=== PATIENT | female | born 1955 | race Caucasian/White ===

== ENCOUNTER 2022-08-01 17:35 | Emergency (ER) | payer MEDICARE, BC, SELFPAY ==
[2022-08-01 17:45] VITALS: BP 151/96
[2022-08-01 17:47] VITALS: BP 151/96; PULSE 67; RESP 18; TEMP 36.2; O2SAT 99; BMI 28.8
--- NOTE | 2022-08-01 18:11 | ED_ITS ---
HPI - General Adult General Chief complaint: Nausea/Vomiting Stated complaint: dehydrated Time Seen by Provider: 08/01/22 17:41 Source: patient and family Mode of arrival: ambulatory Limitations: no limitations History of Present Illness HPI narrative: 67-year-old female presents the emergency department with a 3 day history of diarrhea and 2 day history of nausea. Patient was diagnosed with diabetes 4 weeks ago. She was started on metformin 500 mg tablets. She has been increasing the dose by 1 tablet every week and is now taking 2000 mg of the extended release version once daily. She did have any significant side effects at 1000 mg but started having some mild intermittent nausea and looser stools at 1500 mg and they have worsened since she recently increased to 1000 mg once daily. She has not talked to her primary care provider about lowering her dose. Blood sugar was 160 this morning. There is no abdominal pain. There is no blood in her stools. She has had no fevers or no other symptoms of significant illness. She has not tried any Imodium to help with the loose stools or any other home treatments. She has a notable history of orthostatic hypotension, takes midodrine Florinef for symptomatic control. All of her cares through [facility] and I do not have access to those records today. She says that she feels like she is probably getting dehydrated. She is not on any type of beta-anshul that would mask tachycardia. Past medical history most notable for migraines, orthostatic hypertension, hyperlipidemia, anxiety, hypothyroidism. Her medications are reviewed from her my chart sugar on her phone. She denies any true drug allergies. Socially she is a nonsmoker with no pertinent alcohol or drug use or travel. ROS is notable for the GI symptoms as above, otherwise denies times 12 systems. Related Data Home Medications Medication Instructions Recorded Confirmed atorvastatin 80 mg tablet 80 mg PO DAILY 08/01/22 08/01/22 escitalopram oxalate 20 mg tablet 20 mg PO DAILY 08/01/22 08/01/22 gabapentin 300 mg capsule mg PO 08/01/22 levothyroxine 50 mcg tablet 50 mcg PO DAILY 08/01/22 08/01/22 metformin 500 mg tablet,extended PO 08/01/22 release 24 hr Allergies Allergy/AdvReac Type Severity Reaction Status Date / Time No Known Drug Allergies Allergy Verified 08/01/22 17:51 PFSH PFS Social History Smoking Status: Former smoker How often do you have a drink containing alcohol: never How often do you have six or more drinks on one occasion: Never AUDIT-C Alcohol total score: 0 Non-prescribed substance use: denies use Exam Const: Vital Signs, click to edit/add: Vital Signs - 24 hr 08/01/22 17:47 Temperature 97.2 F L Pulse Rate [Right Pulse Oximeter] 67 Respiratory Rate 18 Blood Pressure [Le ft Upper Arm] 151/96 H Pulse Oximetry 99 Oxygen Delivery Me thod Room Air Documenting provider has reviewed patient's vital signs: yes Common normals: no apparent distress General appearance: cooperative, comfortable and well kempt HENMT: Common normals: normocephalic Head and scalp: normocephalic Mouth: oral and palatal mucosa normal Throat: posterior oropharynx normal Other: Moist mucous membranes Eye: Common normals: conjunctivae normal Conjunctiva: conjunctiva(e) normal Resp: Common normals: normal respiratory effort, no use of accessory muscles and clear to auscultation bilaterally Effort & inspection: able to speak in complete sentences Auscultation: clear to auscultation bilaterally Cardio: Common normals: regular rate, regular rhythm, S1 normal heart sound, S2 normal heart sound, no murmurs and peripheral pulses 2+ throughout Rate: regular rate Rhythm: regular rhythm Heart sounds: S1 normal and S2 normal Peripheral pulses: pulses 2+ throughout GI: Other: Abdominal binder in place but soft underneath. No obvious masses Psych: Appearance: well kempt Attitude: engaged Insight: insight good Judgement: judgment good Skin: Common normals: no rashes or lesions noted General skin exam: no rashes or lesions noted Course Vital Signs Vital signs: Initial Vital Signs Temperature 97.2 F L 08/01/22 17:47 Temperature Source Temporal Artery Scan 08/01/22 17:47 Pulse Rate 67 08/01/22 17:47 Respiratory Rate 18 08/01/22 17:47 Blood Pressure 151/96 H 08/01/22 17:47 Blood Pressure Mean 114 08/01/22 17:47 Blood Pressure Position Sitting 08/01/22 17:47 Pulse Oximetry 99 08/01/22 17:47 Oxygen Delivery Method Room Air 08/01/22 17:47 Vital Signs Temperature 97.2 F L 08/01/22 17:47 Pulse Rate 67 08/01/22 17:47 Respiratory Rate 18 08/01/22 17:47 Blood Pressure 151/96 H 08/01/22 17:47 Pulse Oximetry 99 08/01/22 17:47 Oxygen Delivery Method Room Air 08/01/22 17:47 Temperature 97.2 F L 08/01/22 17:47 Pulse Rate 67 08/01/22 17:47 Respiratory Rate 18 08/01/22 17:47 Blood Pressure 151/96 H 08/01/22 17:47 Pulse Oximetry 99 08/01/22 17:47 Oxygen Delivery Method Room Air 08/01/22 17:47 Medical Decision Making MDM Narrative Medical decision making narrative: No hypotension or tachycardia. Moist membranes no obvious clinical dehydration. Suspect metformin side effect, as does patient and family. No fevers tenderness or other red flags. I ask if she would like blood work done and she agrees that this is not warranted. I do recommend that she discontinue the metformin for the next couple of days and will discuss a slower reintroduction and lower overall dose. Counseled that she may use Imodium as needed for the loose stools will give 1 L of LR and 4 mg of Zofran. Update: Patient is feeling quite a bit better after the Zofran. She has gotten about a 0.5 L of fluids, we will continue these. Counseled on stopping the metformin for 2 days, restarting on Wednesday at 1 pill daily for 3 days and then trying to increase to 2 pills daily. I do recommend split dosing on that. Contact her primary care doctor in a couple of weeks to let her know how this titration is going and for further instructions. Alarm symptoms reviewed. Okay to use Imodium if preferred. Discharge Plan Discharge Clinical Impression: Medication side effect Patient Disposition: Home w/ Parent or Adult Condition: Stable Instructions: Metformin (By mouth) Additional Instructions: Unfortunately, side effects to metformin are very common. Thankfully, this medicine will likely still be able to control your diabetes effectively even at a lower dose. Most people have significantly less side effects at a lower dose. I recommend that you stop the medicine for 2 days. I am not worried about your blood sugar unless it is over 400. It will take some time to get things under appropriate control. On Wednesday, restart your metformin at 500 mg in the morning only. Do this for 3 days, then increase to 500 mg morning and evening. Keep taking this dose for 2 weeks then update your primary care doctor regarding your progress and further advice. You may be able to tolerate an increase up to 1500 mg daily but it is rare for patients to tolerate more than this. There are many other medications that could be used to treat your diabetes if needed. Your given IV fluids to help with the dehydration as well as some nausea medicine. Symptoms will improve markedly within a couple of days. It is safe to take a little bit of Imodium for the diarrhea. You will have significantly last diarrhea if you are eating foods lower in sugar. If you are unable to hold down any liquids for more than 24 hours, please come back to the emergency department. Activity Level: No Restrictions Discharge Diet: Regular Prescriptions: No Action atorvastatin 80 mg tablet 80 mg PO DAILY levothyroxine 50 mcg tablet 50 mcg PO DAILY gabapentin 300 mg capsule PO metformin 500 mg tablet extended release 24 hr PO escitalopram oxalate 20 mg tablet 20 mg PO DAILY Stand Alone Forms: [employer] Info Instructions
[2022-08-01] MEDS: LACTATED RINGERS 1000 ML 1,000 ML IV (18:25)
[2022-08-01] MEDS: ONDANSETRON 2 MG/ML inj 4 MG IVP (18:28)
[2022-08-01 19:00] VITALS: BP 241/117; PULSE 69; O2SAT 98
--- NOTE | 2022-08-01 19:11 | ED.NURSE ---
Pt reports she took her home medication, Midodrine, at approx 1700 hours. Pt BP noted to be 241/117 at approx 1900 hours. Pt states it is normal for her BP to rise to 200-something systolic when she takes her Midodrine. notified and aware.
== END 2022-08-01 19:32 | disposition home or self-care (01) ==
PROVIDERS: Emergency Provider Family Medicine
DX: R11.2 Nausea with vomiting, unspecified (principal); T50.905A Adverse effect of unspecified drugs, medicaments and biological substances, initial encounter
CPT/HCPCS: 96374; 99282; 99283; J2405; J7120

== ENCOUNTER 2022-08-02 16:26 | Emergency (ER) | payer MEDICARE, BC, SELFPAY ==
[2022-08-02 16:35] VITALS: BP 150/91; PULSE 58; RESP 20; O2SAT 98; BMI 28.8
--- NOTE | 2022-08-02 17:11 | ED_ITS ---
HPI - Nausea/Vomiting/Diarrhea General Chief complaint: Nausea/Vomiting Stated complaint: Dehydration, nasuea Time Seen by Provider: 08/02/22 16:47 History of Present Illness HPI Narrative: This patient is a 67-year-old female who comes in with persistent nausea symptoms. She was seen yesterday for similar symptoms and received IV fluids and nausea medicine which brought temporary relief. These symptoms have occurred as she has been increasing her dosing of metformin. She tolerated 500 mg daily and a 1000 mg daily without any problems but now when she had increased up to 2000 mg extended release daily these symptoms evolved. She has discontinued this medicine since yesterday when she last it. She has not had any vomiting or diarrhea but feels very nauseated. Related Data Home Medications Medication Instructions Recorded Confirmed atorvastatin 80 mg tablet 80 mg PO DAILY 08/01/22 08/01/22 escitalopram oxalate 20 mg tablet 20 mg PO DAILY 08/01/22 08/01/22 gabapentin 300 mg capsule mg PO 08/01/22 levothyroxine 50 mcg tablet 50 mcg PO DAILY 08/01/22 08/01/22 metformin 500 mg tablet,extended PO 08/01/22 release 24 hr Allergies Allergy/AdvReac Type Severity Reaction Status Date / Time No Known Drug Allergies Allergy Verified 08/01/22 17:51 Review of Systems Status of ROS: Reports: 10 or more systems reviewed and unremarkable except as noted in History and below Narrative: Constitutional: No fevers, no weight gain or loss. Eyes: No discharge. No vision changes. HENT: No congestion, no sore throat, no ear pain. Cardiovascular: No chest pain, no palpitations. Respiratory: No shortness of breath, no wheezes, no cough. Gastrointestinal: No abdominal pain, no vomiting, no diarrhea. She reports persistent nausea symptoms. Genitourinary: No dysuria, no hematuria. Musculoskeletal: Normal range of motion. Skin: No rashes, no pruritis. Neurological: No dizziness, weakness, sensory change, speech change. Endo/Heme/Allergies: No bruising or bleeding. No polydipsia. Pysch: no suicidality, no anxiety, no insomnia. All other systems reviewed and are negative. [facility] Social History Smoking Status: Former smoker How often do you have a drink containing alcohol: never How often do you have six or more drinks on one occasion: Never AUDIT-C Alcohol total score: 0 Non-prescribed substance use: denies use service: No Exam Narrative: Exam Narrative: Constitutional: Well-developed, well-nourished, no acute distress. HEENT: Normocephalic, atraumatic. Neck: Normal range of motion. Nontender. Supple. Heart: Regular. No murmurs. Normal rate. Intact distal pulses. Lungs: Clear to auscultation. No chest discomfort. No wheezes, rhonchi, or rales. Abdomen: Normal bowel sounds. Nontender. No rebound tenderness. Genitalia: Deferred. Back: No midline tenderness. Normal range of motion. Extremities: Normal range of motion. No injury. Skin: Intact. No rash. Warm. No erythema or pallor. Neurologic: No altered sensation. No weakness. Alert and oriented. Psychiatric: No suicidality. No anxiety or depression. No insomnia. Nursing notes and vitals signs are reviewed. Const: Vital Signs, click to edit/add: Vital Signs - 24 hr 08/02/22 16:35 Pulse Rate [Pulse Oximeter] 58 L Respiratory Rate 20 Blood Pressure [Ri ght Upper Arm] 150/91 H Pulse Oximetry 98 Oxygen Delivery Me thod Room Air Course Vital Signs Vital signs: Initial Vital Signs Temperature Source Temporal Artery Scan 08/02/22 16:35 Pulse Rate 58 L 08/02/22 16:35 Pulse Rhythm Regular 08/02/22 16:35 Respiratory Rate 20 08/02/22 16:35 Blood Pressure 150/91 H 08/02/22 16:35 Blood Pressure Mean 110 08/02/22 16:35 Blood Pressure Position Supine 08/02/22 16:35 Pulse Oximetry 98 08/02/22 16:35 Oxygen Delivery Method Room Air 08/02/22 16:35 Vital Signs Pulse Rate 58 L 08/02/22 16:35 Respiratory Rate 20 08/02/22 16:35 Blood Pressure 150/91 H 08/02/22 16:35 Pulse Oximetry 98 08/02/22 16:35 Oxygen Delivery Method Room Air 08/02/22 16:35 Pulse Rate 58 L 08/02/22 16:35 Respiratory Rate 20 08/02/22 16:35 Blood Pressure 150/91 H 08/02/22 16:35 Pulse Oximetry 98 08/02/22 16:35 Oxygen Delivery Method Room Air 08/02/22 16:35 MDM - Nausea/Vomiting/Diarrhea MDM Narrative Medical decision making narrative: This patient has persistent nausea that most likely is related to metformin which she had increased to 2000 mg extended release daily. She has not taken this medicine since yesterday but given its large dose and extended release feature she likely has not cleared enough to have resolution of symptoms. The plan is to resume lower doses when symptoms have resolved. She is not taking any nausea medicines at home. I did discuss lab and imaging options but these were done yesterday as was IV fluids. She does arrive with normal vital signs and does not have tachycardia or hypotension. She did receive an oral dose of Zofran 4 mg. This did not bring much relief so another dose of 4 mg was administered which did help her significantly. She states that she is hungry. I did provide [facility] prescription for more tablets of Zofran. Discharge Plan Discharge Clinical Impression: Medication side effect, Nausea Patient Disposition: Home, Self-Care Condition: Improved Additional Instructions: Take medication as needed and directed. Hold metformin until symptoms resolve. Increase diet as tolerated. Follow up with MD to review medications. Return if worsening. Prescriptions: No Action atorvastatin 80 mg tablet 80 mg PO DAILY levothyroxine 50 mcg tablet 50 mcg PO DAILY gabapentin 300 mg capsule PO metformin 500 mg tablet extended release 24 hr PO escitalopram oxalate 20 mg tablet 20 mg PO DAILY Follow Up/Referrals: Provider,Not a Local [Primary Care Provider] - Stand Alone Forms: [employer] Info Instructions
[2022-08-02] MEDS: ONDANSETRON ODT 4 MG TAB PO ×2 (17:14→18:00)
[2022-08-02 18:30] VITALS: BP 146/79; PULSE 58; O2SAT 98
== END 2022-08-02 18:36 | disposition home or self-care (01) ==
PROVIDERS: Emergency Provider Emergency Medicine Emergency Medical Services
DX: R11.0 Nausea (principal); T38.3X5A Adverse effect of insulin and oral hypoglycemic [antidiabetic] drugs, initial encounter
CPT/HCPCS: 99283; 99284; A9270

== ENCOUNTER 2022-08-19 17:11 | Emergency (ER) | payer MEDICARE, BC, SELFPAY ==
[2022-08-19 17:18] VITALS: BP 106/58; PULSE 63; RESP 16; TEMP 36.9; O2SAT 95; BMI 28.2
[2022-08-19 17:43] VITALS: O2SAT 95
[2022-08-19] MEDS: 0.9 % SODIUM CHLORIDE 1000 ml 1,000 ML IV ×2 (18:01→19:15)
[2022-08-19 18:04] LABS: Basophils Absolute Auto 0.03 K/uL (0.00-0.30); Basophils Percent Auto 0.3 % (0.0-3.0); Eosinophils Absolute Auto 0.21 K/uL (0.00-0.50); Eosinophils Percent Auto 2.2 % (0.0-7.0); Hematocrit 33.1 % (33.0-51.0); Hemoglobin* 11.4 gm/dL (12.0-16.0); Immature Granulocytes Abs Auto 0.03 K/uL (0.00-0.30); Immature Granulocytes Pct Auto 0.3 %; Lymphocytes Percent Auto 10.7 % (20-44); Mean Corpuscular HGB Conc 34 gm/dL (32-36); Mean Corpuscular Hemoglobin 30 pg (26-34); Mean Corpuscular Volume 88 fL (80-100); Neutrophils Percent Auto 77.5 % (42.0-72.0); Platelet Count* 288 K/uL (140-440); RDW Coefficient of Variation % 12.8 % (11.5-15.5); Red Blood Count 3.75 m/uL (4.00-5.20); White Blood Count* 9.53 K/uL (4.50-11.00)
[2022-08-19 18:06] LABS: Slide Review Reflex No
[2022-08-19 18:17] LABS: Albumin* 4.2 g/dL (3.3-5.0)
[2022-08-19 18:18] LABS: Chloride* 105 mmol/L (96-114); Potassium* 3.7 mmol/L (3.6-5.1); Sodium* 135 mmol/L (135-149)
[2022-08-19 18:20] LABS: Alanine Aminotransferase* 29 U/L (4-35); Alkaline Phosphatase* 93 U/L (40-150); Aspartate Amino Transferase* 29 U/L (12-35); Bilirubin Direct* 0.3 mg/dL (0.0-0.5); Bilirubin Total* 0.8 mg/dL (0.1-1.5)
[2022-08-19 18:21] LABS: Carbon Dioxide* 22 mmol/L (20-32); Est. Creatinine Clearance* 52.36; Estimated Glomerular Filt Rate 61 ml/min
[2022-08-19 18:22] LABS: Blood Urea Nitrogen* 30 mg/dL (7-30); Calcium* 8.9 mg/dL (8.4-10.6); Glucose* 195 mg/dL (60-115)
[2022-08-19] MEDS: KETOROLAC 30 MG/ML inj 20 MG IVP (18:24)
[2022-08-19] MEDS: ONDANSETRON 2 MG/ML inj 4 MG IVP (18:24)
[2022-08-19 18:25] LABS: C Reactive Protein* 4.2 mg/dL (0.5-1.0)
[2022-08-19 18:31] LABS: NT Pro B Type NatriureticPept* 363 pg/mL
--- NOTE | 2022-08-19 18:31 | ED.GENADULT ---
HPI - General Adult General Chief complaint: Weakness Stated complaint: Dehydrated, Possible reaction to a medication Time Seen by Provider: 08/19/22 17:18 History of Present Illness HPI narrative: 67-year-old woman presenting to the emergency department accompanied by family. Shortly before arrival experienced a syncopal event. Family witnessed. This is not necessarily new as family explains a history of autonomic dysfunction and has been extensively evaluated. When she gets to this degree though typically needs IV rehydration Peri explains to me. Otherwise she is having a difficult time recounting events. She has also been initiated on metformin. Due to some apparent intolerance had backed off on the dosing and now increased again to of 1 g a day. Starting last night did have diarrhea. She is not having abdominal pain. No fever. No particular ill exposures. No chest pain. Maybe mildly short of breath. Related Data Home Medications Medication Instructions Recorded Confirmed atorvastatin 80 mg tablet 80 mg PO DAILY 08/01/22 08/01/22 escitalopram oxalate 20 mg tablet 20 mg PO DAILY 08/01/22 08/01/22 gabapentin 300 mg capsule mg PO 08/01/22 levothyroxine 50 mcg tablet 50 mcg PO DAILY 08/01/22 08/01/22 metformin 500 mg tablet,extended PO 08/01/22 release 24 hr Previous Rx's Medication Instructions Recorded ondansetron 4 mg disintegrating 4 mg PO Q6H #20 tabs 08/02/22 tablet Allergies Allergy/AdvReac Type Severity Reaction Status Date / Time No Known Drug Allergies Allergy Verified 08/19/22 17:20 Review of Systems Status of ROS: Reports: 10 or more systems reviewed and unremarkable except as noted in History and below PFSH PFS Social History Smoking Status: Former smoker How often do you have a drink containing alcohol: never How often do you have six or more drinks on one occasion: Never AUDIT-C Alcohol total score: 0 Non-prescribed substance use: denies use service: No Exam Narrative: Exam Narrative: Calm. Seems little distracted mentally subtly foggy. Breathing easily. Cranial nerves 2-12 look to be intact. Moving all extremities without difficulty. No indication of trauma however does have abrasions or excoriations on extremities bilateral shins and left forearm. Neck is supple nontender. Back nontender. Lungs are clear. Heart in a regular rate and rhythm. No murmur rub or gallop identified. Abdomen is soft and nontender. Extremities are without edema. Well perfused. Oropharynx without evidence of injury is otherwise sticky Const: Vital Signs, click to edit/add: Vital Signs - 24 hr 08/19/22 17:18 08/19/22 17:43 Temperature 98.4 F Pulse Rate [Right Pulse Oximeter] 63 Respiratory Rate 16 Blood Pressure [Le ft Upper Arm] 106/58 L Pulse Oximetry 95 95 Oxygen Delivery Me thod Room Air Documenting provider has reviewed patient's vital signs: yes Course Vital Signs Vital signs: Initial Vital Signs Temperature 98.4 F 08/19/22 17:18 Temperature Source Temporal Artery Scan 08/19/22 17:18 Pulse Rate 63 08/19/22 17:18 Pulse Rhythm Regular 08/19/22 17:18 Pulse Strength 3+ Normal 08/19/22 17:18 Respiratory Rate 16 08/19/22 17:18 Blood Pressure 106/58 L 08/19/22 17:18 Blood Pressure Mean 74 08/19/22 17:18 Blood Pressure Position Supine 08/19/22 17:18 Pulse Oximetry 95 08/19/22 17:18 Oxygen Delivery Method Room Air 08/19/22 17:18 Vital Signs Temperature 98.4 F 08/19/22 17:18 Pulse Rate 63 08/19/22 17:18 Respiratory Rate 16 08/19/22 17:18 Blood Pressure 106/58 L 08/19/22 17:18 Pulse Oximetry 95 08/19/22 17:18 Oxygen Delivery Method Room Air 08/19/22 17:18 Temperature 98.4 F 08/19/22 17:18 Pulse Rate 63 08/19/22 17:18 Respiratory Rate 16 08/19/22 17:18 Blood Pressure 106/58 L 08/19/22 17:18 Pulse Oximetry 95 08/19/22 17:43 Oxygen Delivery Method Room Air 08/19/22 17:18 Medical Decision Making MDM Narrative Medical decision making narrative: I think reasonable to initiate IV hydration. Orthostatics probably will not make much of a difference here. If positive indicate a need for fluids or negative would still give fluids. Does not seem to be a cardiac event beyond what has already been diagnosed. Diarrhea is not described with hematochezia. This could be viral etiology or possible medication reaction. Will check secondary labs in this regard as well. Chemistries. Urinalysis. Looking for other indication of infection. Swabs will also be done for COVID and influenza. labs ultimately reassuring. moderately elevated CRP. requested medication for nausea and headache -- zofran and ketorolac. still with a little residual and given another liter of ivf. over time in the ER continued to appear to have more energy and more upbeat. felt well enough to be at home Lab Data Lab results reviewed: Yes I reviewed the patient's lab results Labs: Lab Results 08/19/22 08/19/22 08/19/22 Range/Units 17:44 17:47 19:00 WBC 9.53 (4.50-11.00) K/uL RBC 3.75 L (4.00-5.20) m/uL Hgb 11.4 L (12.0-16.0) gm/dL Hct 33.1 (33.0-51.0) % MCV 88 (80-100) fL MCH 30 (26-34) pg MCHC 34 (32-36) gm/dL RDW Coeff of Koby 12.8 (11.5-15.5) % Plt Count 288 (140-440) K/uL Neut % (Auto) 77.5 H (42.0-72.0) % Lymph % (Auto) 10.7 L (20-44) % Banks % (Auto) 9.0 (0.0-11.0) % Eos % (Auto) 2.2 (0.0-7.0) % Baso % (Auto) 0.3 (0.0-3.0) % Neut # (Auto) 7.40 H (1.7-7.0) K/uL Lymph # (Auto) 1.00 (0.90-2.90) K/uL Banks # (Auto) 0.90 (0.00-0.90) K/UL Eos # (Auto) 0.21 (0.00-0.50) K/uL Baso # (Auto) 0.03 (0.00-0.30) K/uL Sodium 135 (135-149) mmol/L Potassium 3.7 (3.6-5.1) mmol/L Chloride 105 (96-114) mmol/L Carbon Dioxide 22 (20-32) mmol/L BUN 30 (7-30) mg/dL Creatinine 1.0 (0.5-1.5) mg/dL Estimated Creat Clear 52.36 Estimated GFR 61 ml/min Glucose 195 H (60-115) mg/dL Calcium 8.9 (8.4-10.6) mg/dL Total Bilirubin 0.8 (0.1-1.5) mg/dL Direct Bilirubin 0.3 (0.0-0.5) mg/dL AST 29 (12-35) U/L ALT 29 (4-35) U/L Alkaline Phosphatase 93 (40-150) U/L Troponin I < 0.01 L (0.01-0.04) ng/mL C-Reactive Protein 4.2 H (0.5-1.0) mg/dL NT-Pro-B Natriuret Pep 363 pg/mL Total Protein 7.0 (6.0-8.3) g/dL Albumin 4.2 (3.3-5.0) g/dL Urine Color Yellow (Yellow) Urine Appearance Clear (Clear) Urine pH 6.0 (5.0-8.5) Ur Specific Mckinney 1.010 (1.000-1.030) Urine Protein Negative (Negative) Urine Glucose (UA) Negative (Negative) Urine Ketones Negative (Negative) Urine Blood Negative (Negative) Urine Nitrite Negative (Negative) Urine Bilirubin Negative (Negative) Urine Urobilinogen 0.2 (0.2-1.0) Ur Leukocyte Esterase Negative (Negative) Urine RBC 0-2 (0-2) Urine WBC 0-2 (0-5) Ur Squamous Epith Cells None (None-Few) Urine Bacteria None (None) SARS-CoV-2 (PCR) Negative SARS-CoV-2 (Negative) Influenza Type A (PCR) Negative PCR FLU A (Negative) Influenza Type B (PCR) Negative PCR FLU B (Negative) RSV (PCR) Negative PCR RSV (Negative) POC Troponin I 0.00 L (0.01-0.04) ng/ml ECG Data Attestation: I personally reviewed and interpreted this ECG as follows: (If EKG is similar to 2016 as the only prior available to me. I do not see acute ischemic changes. Normal sinus at 65) Discharge Plan Discharge Clinical Impression: Autonomic dysfunction, Dehydration, Syncope, Diarrhea Patient Disposition: Home w/ Parent or Adult Condition: Improved Additional Instructions: Keep hydrating. As discussed your labs look good here today other than some mild elevation in nonspecific inflammatory marker. I would discuss this metformin further with your primary care provider please. I am not sure that treatments need to be changed with regard to your autonomic dysfunction, at least in light of recent stressor of diarrhea and apparent dehydration. Would also discuss this though with your neurologist. Activity Level: No Restrictions Discharge Diet: Regular Prescriptions: No Action atorvastatin 80 mg tablet 80 mg PO DAILY levothyroxine 50 mcg tablet 50 mcg PO DAILY gabapentin 300 mg capsule PO metformin 500 mg tablet extended release 24 hr PO escitalopram oxalate 20 mg tablet 20 mg PO DAILY ondansetron 4 mg tablet,disintegrating 4 mg PO Q6H Qty: 20 0RF Follow Up/Referrals: Roxana Leung PA-C [Primary Care Provider] - Stand Alone Forms: [employer] Info Instructions
[2022-08-19 18:40] LABS: PCR FLU A Negative PCR FLU A (Negative); PCR FLU B Negative PCR FLU B (Negative); PCR RSV Negative PCR RSV (Negative)
[2022-08-19 18:41] LABS: SARS PCR* Negative SARS-CoV-2 (Negative); Troponin I* < 0.01 ng/mL (0.01-0.04)
[2022-08-19 19:20] LABS: Appearance Urine Clear (Clear); Bilirubin Urine Negative (Negative); Blood Urine Negative (Negative); Color Urine Yellow (Yellow); Glucose Urine Negative (Negative); Ketones Urine Negative (Negative); Leukocyte Esterase Urine Negative (Negative); Nitrite Urine Negative (Negative); Protein Urine Negative (Negative); Urobilinogen Urine 0.2 (0.2-1.0)
[2022-08-19 19:34] LABS: RBC Urine 0-2 (0-2); WBC Urine 0-2 (0-5)
== END 2022-08-19 20:26 | disposition home or self-care (01) ==
PROVIDERS: Emergency Provider Family Medicine; PCP Internal Medicine
DX: F45.8 Other somatoform disorders (principal); E86.0 Dehydration; R55 Syncope and collapse; R19.7 Diarrhea, unspecified
CPT/HCPCS: 36415; 80048; 80076; 81001; 83880; 84484; 85025; 86140; 87631; 93005; 94761; 96361; 96374; 96375; 99284; J1885; J2405; J7030

== ENCOUNTER 2024-12-22 14:06 | Outpatient (RCR) | payer MEDICARE, BC, SELFPAY | END 2025-03-05 13:24 | disposition home or self-care (01) | PROVIDERS: PCP Internal Medicine; Visit Provider Physician Assistant | DX: M54.31 Sciatica, right side (principal); Z51.89 Encounter for other specified aftercare | CPT/HCPCS: 97110; 97161 ==